=== PATIENT | male | born 1960 | race Caucasian/White ===

== ENCOUNTER 2016-08-24 08:44 | Emergency (ER) | payer OTHER ==
[~2016-08-24] VITALS: Ht 177.8 cm; Wt 107.0 kg
[2016-08-24 08:46] VITALS: BP 171/84; PULSE 84; RESP 16; TEMP 98.2; O2SAT 98
--- NOTE | 2016-08-24 08:57 | PD ---
HPI . back pain for several weeks Chief Complaint: Back/ Neck Pain or Injury Time Seen by Provider: 08:56 Travel History International Travel<30 days: No Contact w/Intl Traveler<30days: No Traveled to known affect area: No History of Present Illness HPI 56-year-old male here with complaints of lower back pain for the past several weeks. Patient tells me he is unable to put his left foot down to walk. He does have a history of back problems dating back 20 years prior and had previous surgery secondary bulging discs. He recently went to a chiropractor 1 week ago and had an xray done and was told he had some type of disc pressing on another disc. He says the pain is radiating down his left leg and causes him difficulty walking. He describes it as a shooting pain and 10/10. He denies any bowel or bladder dysfunction. No saddle anesthesia. He was seen by his PCP just the other day and already placed on anti-inflammatories and muscle relaxers. Patient reports that they are not helping him enough. PFSH Past Medical History Diminished Hearing: No Social History Alcohol Use: No Tobacco Use: No Substance Use: No Allergies-Medications (Allergen,Severity, Reaction): Coded Allergies: No Known Allergies (Unverified , 08/24/16) Reported Meds & Prescriptions Reported Meds & Active Scripts Active Medrol Dosepak (Methylprednisolone) 4 Mg Dspk 4 Mg PO DIRECTED Per Pharmacist direction Reported Diclofenac Sodium DR (Diclofenac Sodium) 75 Mg Tabdr 75 Mg PO BID Flexeril (Cyclobenzaprine HCl) 10 Mg Tab 10 Mg PO TID Hydrocodone-Acetaminophen 10-325 mg Tab 1 Tab PO Q4H PRN Review of Systems General / Constitutional: No: Fever Eyes: No: Visual changes HENT: No: Headaches Cardiovascular: No: Chest Pain or Discomfort Respiratory: No: Shortness of Breath Gastrointestinal: No: Abdominal Pain Genitourinary: No: Dysuria Musculoskeletal: Positive: Pain (back and left leg pain) Skin: No Rash Neurologic: No: Weakness Psychiatric: No: Depression Endocrine: No: Polydipsia Hematologic/Lymphatic: No: Easy Bruising Physical Exam Narrative GENERAL: AAO x 3, no acute distress, Well-nourished, well-developed patient. SKIN: Warm and dry. No visible rashes or bruising. HEAD: Normocephalic and atraumatic. EYES: No scleral icterus. No injection or drainage. ENT: No nasal drainage noted. Airway patent. NECK: Supple, trachea midline. No JVD. CARDIOVASCULAR: Regular rate and rhythm without murmurs, gallops, or rubs. RESPIRATORY: Breath sounds equal bilaterally. No accessory muscle use. No rhonchi or rales. GASTROINTESTINAL: Abdomen soft, non-tender, nondistended. EXTREMITIES: No cyanosis or edema. BACK: Nontender without obvious deformity. No CVA tenderness. No spinous process tenderness. There is tenderness along the left gluteus muscle. With palpation it shoots down into the left leg. Sensation is normal and the left leg. Straight leg raise positive on left leg PSYCH: AAO x 3, normal affect. Data Data Last Documented VS Vital Signs Date Time Temp Pulse Resp B/P Pulse Ox O2 Delivery O2 Flow Rate FiO2 08/24/16 08:46 98.2 84 16 171/84 98 Orders Tramadol (Ultram) (08/24/16 09:15) Spine, Lumbar Comp W/Obliq (08/24/16 09:03) MDM Medical Decision Making Medical Screen Exam Complete: Yes Emergency Medical Condition: Yes Medical Record Reviewed: Yes Differential Diagnosis lumbago, sciatica, less likely cauda equina Narrative Course 56-year-old male here with complaints of lower back pain for the past several weeks. Patient tells me he is unable to put his left foot down to walk. He does have a history of back problems dating back 20 years prior and had previous surgery secondary bulging discs. He recently went to a chiropractor 1 week ago and had an xray done and was told he had some type of disc pressing on another disc. He says the pain is radiating down his left leg and causes him difficulty walking. He describes it as a shooting pain and 10/10. He denies any bowel or bladder dysfunction. No saddle anesthesia. He was seen by his PCP just the other day and already placed on anti-inflammatories and muscle relaxers. Patient reports that they are not helping him enough. Patient seen and examined. He does have some pain in the lower back radiating to left leg. Pain with palpation along buttocks. SLR + on left leg Will check lumbar spine xray. If negative, we'll go ahead and use a Medrol Dosepak in addition to the medications he is already taking. Last Impressions Lumbar Spine X-Ray 08/24/16 0903 Signed Impressions: Service Date/Time: Wednesday, August 24, 2016 09:22 - CONCLUSION: 1. Mild degenerative disc change. 2. Mild degenerative joint change. Rudy Tobin MD pain reassessed: patient states, "Much better." I've explained to patient that ultimately he will need to follow-up with his primary care provider for further workup and treatment. I discussed that physical therapy often times is indicated. I explained that he may need a MRI Patient verbalized understanding of instructions, questions were answered, and thanked me for their care. I advised them if their condition worsens, please return to the nearest emergency room for further care. Diagnosis Primary Impression: Lumbago Qualified Code: M54.42 - Acute left-sided low back pain with left-sided sciatica Additional Impression: Sciatica of left side Patient Instructions: Back Pain (ED), General Instructions, Sciatica (ED) Additional Instructions: Please return to emergency department if your symptoms return or worsen. Follow up with your primary care provider. Take medications as prescribed. If pain persists past 7-10 days, follow-up with primary care provider. Med/Other Pt SpecificInfo: Prescription(s) given Scripts Methylprednisolone Dosepak (Medrol Dosepak)4 Mg Dspk4 Mg PO DIRECTED #1 DSPK Ref 0 Per Pharmacist direction Prov:Jazmín Byers MD 08/24/16 Disposition: 01 DISCHARGE HOME Condition: Stable Luz Maria Carolina Aug 24, 2016 08:57
[2016-08-24] MEDS ORDERED: CYCL1TAB29 PO (08:58)
[2016-08-24] MEDS ORDERED: HYDR-3583 PO (08:58)
[2016-08-24] MEDS ORDERED: DICL75TA PO (08:58)
[2016-08-24] MEDS ORDERED: traMADol HCL 50 MG TAB PO ONE (09:15)
--- NOTE | 2016-08-24 09:34 | RADRPT ---
EXAM DATE/TIME: 08/24/2016 09:22 [facility] COMPARISON: No previous studies available for comparison. INDICATIONS : Lower back pain MEDICAL HISTORY : Ruptured disc in L4 L5 20 years ago. SURGICAL HISTORY : None. ENCOUNTER: Initial ACUITY: 2 weeks PAIN SCORE: 10/10 LOCATION: Left FINDINGS: There are five non-rib bearing vertebral bodies. The vertebral bodies are in normal alignment withou t evidence of subluxation or scoliosis. There are mild degenerative disc changes with mild disc space narrowing and hypertrophic change. The posterior elements are intact without evidence of spondylolys is. There are mild degenerative changes involving the lower facets. The pedicles are intact. Bony m ineralization is normal. No fracture is identified. CONCLUSION: 1. Mild degenerative disc change. 2. Mild degenerative joint change. Rudy Tobin MD on August 24, 2016 at 9:31 Board Certified Radiologist. This report was verified electronically.
[2016-08-24] MEDS ORDERED: MEDR4PAK PO (09:52)
== END 2016-08-24 10:45 | disposition home or self-care (01) ==
LOC: NEPK 08:44
DX: M54.5 Low back pain (principal); M54.42 Lumbago with sciatica, left side
CPT/HCPCS: 72110; 99283